=== PATIENT | female | born 1955 | race Hispanic/Latino ===

== ENCOUNTER 2021-11-16 14:40 | Emergency (ER) | payer OTHER ==
[~2021-11-16] VITALS: Ht 165.1 cm; Wt 68.2 kg
[2021-11-16] MEDS ORDERED: KETOROLAC TROMETHAMINE 30 MG/ML VIAL IV STA (15:24)
[2021-11-16] MEDS ORDERED: DIATRIZOATE MEGL/DIATRIZOA SOD 30 ML BTL PO ONE (15:33)
[2021-11-16] MEDS ORDERED: NAPROSYN500 MG PO (18:16)
== END 2021-11-16 18:53 | disposition home or self-care (01) ==
LOC: FSED 15:03
DX: R10.32 Left lower quadrant pain (principal); S39.011A Strain of muscle, fascia and tendon of abdomen, initial encounter; X50.0XXA Overexertion from strenuous movement or load, initial encounter; Y92.89 Other specified places as the place of occurrence of the external cause; Z86.69 Personal history of other diseases of the nervous system and sense organs
CPT/HCPCS: 74176; 80048; 80076; 81003; 85025; 99284; Q9963